=== PATIENT | female | born 1965 | race American Indian/Alaskan Native ===

== ENCOUNTER 2018-07-25 07:13 | Day surgery (SDC) | payer BC, OTHER ==
[2018-07-21 14:04] VITALS: BMI 47.0
[2018-07-25] MEDS ORDERED: Lidocaine/Epinephrine 1% 1:100000 10 ML IJ ONE (09:55)
[2018-07-25] MEDS ORDERED: EPINEPHrine 1:1000 Nasal Sol(30mL) ONE (09:55)
[2018-07-25] MEDS ORDERED: ceFAZolin 1 gm FROZEN Premix 0 GM/0 ML ML IVPB ONE (09:57)
[2018-07-25] MEDS ORDERED: ceFAZolin 1 gm in NS 2 GM/200 ML BAG IVPB ONE (09:58)
[2018-07-25] MEDS ORDERED: Propofol 10 mg/ml Inj (20 ML) ONE (12:43)
[2018-07-25] MEDS ORDERED: Rocuronium 10 mg/ml (10 ml) ONE ×2 (12:43→13:25)
[2018-07-25] MEDS ORDERED: Succinylcholine Chloride 20 mg/ml Syr (5 ml) IV ONE (12:43)
[2018-07-25] MEDS ORDERED: Midazolam 2 MG/2 ML VIAL ONE (12:44)
[2018-07-25] MEDS ORDERED: Labetalol 5mg/ml (4ml) ONE (14:19)
[2018-07-25] MEDS ORDERED: Neostigmine Methylsulfate 3mg/3ml Syringe IV ONE (14:38)
[2018-07-25] MEDS ORDERED: HYDROmorphone 0.5 mg/0.5 ml ISec ONE (14:54)
[2018-07-25] MEDS: HYDROmorphone 0.5 mg/0.5 ml ISec IVP PRN ×2 (15:06→15:14)
[2018-07-25] MEDS ORDERED: Bupivacaine 0.25% 20 ML INJ IJ ONE (15:48)
--- NOTE | 2018-07-25 16:14 | PCM.ANESB7 ---
Adductor Canal Block - Adductor Canal Block Date of Procedure: 07/25/18 Anesthiologist: Luke Christianson Pre-Procedure Diagnosis: acute postoperative pain Post-Procedure Diagnosis: acute postoperative pain Procedure Performed: Adductor Canal Block Right - Procedure Adductor Canal Block: The procedure was explained to the patient that it is for the post-operative pain management. Consent was obtained after a thorough discussion with the patient regarding the benefits and possible complications of local anesthetic adductor canal block of the femoral nerve. Standard monitors, as defined by the ASA, were applied to the patient. Time-out was held with the circulating nurse to confirm the appropriate block. After applying supplemental oxygen and administering IV Sedation as needed, the patient was placed in supine position with and the operative leg was flexed slightly at the knee and externally rotated as needed, and was kept anatomically stable. The mid-thigh of the RIGHT lower extremity was exposed. The ultrasound transducer was then applied transversely along the medial aspect, about midway down the thigh and the femoral artery and vein were identified in appropriate relation with the sartorius muscle. At this time, the femoral nerve was visualized lateral to the femoral artery within the canal. After thorough identification, this area area was prepped with Chloroprep solution three times and 1 % Lidocaine was injected subcutaneously for topical anesthesia. At this point, a #22 gauge Stimuplex 4-inch needle was inserted in-plane in a [id number] orientation, and advanced toward the femoral nerve. Advancement was performed carefully under direct ultrasound visualization. . After negative aspiration, _5_cc of __0.25% bupivicaine was injected and this was followed with 10_cc of 0.25% bupivicaine. Under ultrasound guidance the local anesthetics were observed spreading around the adductor nerve. The needle was removed intact and sterile dressing was applied. The patient had stable vital signs, was conscious and in no apparent distress. The patient tolerated the femoral nerve block well with stable vital signs and was prepared for subsequent surgery
[2018-07-25 17:06] VITALS: RESP 16; O2SAT 95
[2018-07-25 18:44] VITALS: BP 150/70; PULSE 71; TEMP 98
--- NOTE | 2018-09-01 08:07 | OP ---
PROCEDURE DATE: 07/25/2018 PREOPERATIVE DIAGNOSES: Right knee, 1. Medial meniscal tear. 2. Lateral meniscal tear. 3. Chondromalacia. 4. Synovitis. 5. Fat pad hypertrophy and inflammation. POSTOPERATIVE DIAGNOSES: Right knee, 1. Complex medial meniscal tear, not repairable. 2. Complex lateral meniscal tear, not repairable. 3. Chondromalacia, grade III throughout with grade IV at medial plateau and anteromedial aspect (measuring 6 mm x 10 mm). 4. Fat pad inflammation and hypertrophy causing anterior impingement. 5. Symptomatic medial and lateral plica bands. 6. Three compartment synovitis. 7. Inferior patellar osteophyte. PROCEDURES: Right knee arthroscopic, 1. Partial medial meniscectomy. 2. Partial lateral meniscectomy. 3. Chondroplasty of medial femoral condyle, lateral femoral condyle, patella. 4. Microfracture of medial tibial plateau. 5. Extensive synovectomy of all three compartments. 6. Resection and debridement of hypertrophic fat pad. 7. Resection and debridement of symptomatic plica bands. 8. Resection and removal of osteophyte at inferior patella. 9. Intra-articular platelet-rich plasma injection. SURGEON: Marva Mejia MD TELEVISION NEWS VIDEO EDITOR: Jocelyn Noyola PA-C JUSTIFICATION FOR TELEVISION NEWS VIDEO EDITOR: Jocelyn Noyola is a certified physician collections assistant whose skilled surgical assistance was an absolute necessity for successful completion of the procedure as he provided skilled surgical assistance with positioning of the patient, positioning of extremity, management of surgical field, retraction of neurovascular structures, facilitating and handling arthroscopic equipment, partial medial meniscectomy, partial lateral meniscectomy, chondroplasty, facilitating microfracture of medial tibial plateau, extensive debridement and synovectomy, PRP injection, wound closure, fitting and placement, and postoperative hinged knee brace. Jocelyn Noyola was present for the entire case and was an absolute necessity for successful completion of the procedure. ANESTHESIA: General endotracheal anesthesia with a postop regional nerve block placed by anesthesia staff in PACU. COMPLICATIONS: None. SPECIMENS: None. IMPLANTS: None. TOURNIQUET TIME: Zero minutes. DRAINS: None. DISPOSITION: The patient was extubated and transferred to the PACU in stable condition and tolerated the procedure well. INDICATIONS FOR SURGERY: The patient is a 53-year-old female with a past medical history significant for bronchial asthma/COPD who presents to the office for first care under my care at [facility] with a right knee pain on 05/27/2018. The patient stated that on 04/29/2018, she woke up with severe pain localized to the right knee and swelling. She had mechanical symptoms including multiple episodes of giving way and clicking and catching. Initial evaluation in the office with x-rays showed that weightbearing x-rays revealed that there were mild changes, but overall the medial and lateral joint lines were well maintained. She was referred for an MRI of the right knee, which was done at [facility] on 05/29/2018, read as: 1. Oblique tear of posterior horn of body medial meniscus. 2. Oblique tear of posterior horn of body lateral meniscus. 3. Great III sprain ACL and grade I sprain MCL. 4. [id number] tricompartmental articular chondrosis. 5. Moderate joint effusion and small Cesar's cyst. She underwent cortisone mixture injection in the office that provided her with near-complete resolution of pain, and she was started with conservative treatments including Neoprene hinged knee brace, anti-inflammatory medications in the form of Mobic, anti-inflammatory cream, home exercise program, and formal physical therapy regimen. On her followup visit to review the MRI and to see how she was progressing with physical therapy, she stated that the injection only lasted a week and the pain returned to baseline level of pain and that the physical therapy was making her pain worse. At that point in time after reviewing the MRI with her, we discussed possible surgical intervention, and she was indicated for surgery in the form of right knee arthroscopic partial medial meniscectomy and partial lateral meniscectomy versus meniscal repairs, chondroplasty versus microfracture, extensive synovectomy and all related indicated arthroscopic procedures. 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 After answering all of her questions, she stated that she understood the risks and wished to proceed with surgery. She watched surgical animation videos and diagnoses. The animation videos stated that she had a good understanding of the procedure to be done as well as her diagnoses. I reviewed at length with her the postop rehabilitation protocol and stated she had a good understanding of the need for compliance with the rehab protocol in order to maximize the chance of having successful outcome after surgery. She was referred to her primary care physician for preadmission testing and medical clearance, and the procedure was scheduled at [facility] on 07/25/2018. Physical exam throughout her office presentation was consistent with medial and lateral meniscal tear with positive medial and lateral Rosario examination and pain along the medial and lateral joint lines with no evidence of instability. PROCEDURE IN DETAIL: The patient was identified in the preoperative holding area and the right knee was marked for surgery. Once again as described above, the risks, benefits, and alternatives of the procedure were discussed at length with the patient, and informed consent was obtained. After a brief discussion with anesthesia staff, the patient was taken to the operating room and placed in a well-padded operating room table with all bony prominences, superficial and neurovascular structures well padded. Perioperative IV antibiotics were administered. An initial time-out was done. General anesthesia was administered without difficulty or complications. Examination under anesthesia was carried out. EXAMINATION UNDER ANESTHESIA: Right knee with full range of motion compared to contralateral knee, significant crepitance throughout range of motion especially at patellofemoral joint, symptomatic plica band identified on medial and lateral aspects of the inferior pole of the patella consistently engaging a 30-degrees flexion arc, no evidence of instability with negative Charles, negative anterior drawer, negative posterior drawer, negative reverse Charles, negative pivot shift, negative reverse pivot shift, negative posterolateral corner drawer, negative dial test, negative opening to mediolateral joint line 0 to 30 degrees varus and valgus stress, patella with normal tracking, no evidence of instability or J-sign. No swelling, no warmth, no erythema, skin intact. CONTINUATION OF PROCEDURE: The tourniquet was placed high on the left thigh, but never inflated. The right lower extremity was prepped and draped in a standard sterile fashion. Final time-out was done with the surgeon, anesthesia staff, and OR staff; all in agreement with the patient, procedure being done and the extremity to be operated on. Normal saline 50 mL was used to insufflate the knee joint. Anterolateral portal was created with stab incision through the skin and subcutaneous tissue down to the level of the capsule. Blunt arthroscopic trocar and cannula were inserted into the suprapatellar pouch, and the knee joints were insufflated with arthroscopic fluid. With the use of spinal needle localization, anteromedial portal location was selected and created with stab incision to the skin down to the subcutaneous tissue down to the level of capsule. With the use of arthroscopic probe, a diagnostic arthroscopy was then carried out. DIAGNOSTIC ARTHROSCOPY: Attention was first turned towards the suprapatellar pouch where there was no evidence of adhesions or loose bodies. Attention was then turned towards to the patellofemoral joint where immediately seen was grade III chondromalacia of the trochlea and the patella. Extending from the inferior medial and lateral aspects of the patella through the medial and lateral retinaculum were two very thick hypertropic symptomatic plica bands going medially and laterally through the medial and lateral retinaculum respectively. Attention was then turned towards the medial gutter where there was no evidence of loose bodies with the above-mentioned plica band seen. Attention was then turned towards the medial compartment where immediately seen was a global grade III chondromalacia and a complex degenerative medial meniscal tear that was not amenable to repair. Attention was then turned towards the lateral compartments where the same was seen in the lateral compartment as global grade II to III chondromalacia with a complex degenerative lateral meniscal tear. At the posteromedial aspect of the medial plateau, there was a small focal area of full-thickness cartilage loss measuring 6 mm in width x 10 mm in length just under the posterior horn of the medial meniscus as the only full-thickness joint cartilage loss seen throughout the whole knee. Extending from the inferior aspect of the patella was a large osteophyte that appeared to be symptomatic perhaps locking and causing pain with full extension. The infrapatellar fat pad was hypertropic and inflamed and impeding and impinging on the patellofemoral joint as well as extension of the knee joint. Throughout all three compartments, there was significant inflamed indurated synovitis that was hypertropic and appeared to be a significant pain generated for the patient as well. CONTINUATION OF THE PROCEDURE: ARTHROSCOPIC PARTIAL MEDIAL MENISCECTOMY: With the use of arthroscopic shaver and radiofrequency ablation as well as meniscal biters, a partial medial meniscectomy was carried out, removing the unstable meniscal fragments and complex tearing that was amenable to repair. Once a smooth contour was established, there appeared to be a significant deficit in medial meniscus. Approximately 50% of the medial meniscus had to be removed as it was involved in the tear. Arthroscopic lateral meniscal tear with the use of arthroscopic shaver, radiofrequency ablation and meniscal biters, a partial lateral meniscectomy was carried out to a lesser extent in the medial side. This was indeed complex degenerative tearing that was not amenable to repair. With the use of the instruments, we were able to establish a smooth contour, resecting approximately 20% of the lateral meniscus overall and stabilizing the tear. Attention was then turned to global treatment of the inflammation seen. ARTHROSCOPIC EXAM FOR SYNOVECTOMY AND DEBRIDEMENT: With the use of arthroscopic shaver and radiofrequency ablation, an extensive synovectomy was carried out in all three compartments that was beyond what was considered usual and customary for better visualization including resection and debridement of the hypertropic inflamed fat pad causing anterior impingement and patellofemoral impingement, resection of the symptomatic medial and lateral plica bands that were causing symptoms with the patella and the distal femur, three compartment synovectomy resection all the inflamed angry indurated red tissue that was seen. This was all down while maintaining good hemostasis, removing significant pain generators in the right knee for this patient. ARTHROSCOPIC CHONDROPLASTY AND MICROFRACTURE: With the use of arthroscopic shaver and radiofrequency ablation, a chondroplasty was carried out to the media femoral condyle, lateral femoral condyle, patella removing the grade III chondromalacia, unstable cartilage fragments and flaps establishing a smooth contour to the cartilage for all those articular surfaces. The lateral tibial plateau also underwent a chondroplasty. The medial tibial plateau also underwent chondroplasty, but as stated before at the posteromedial aspect of the tibial plateau, there was a small zone of full-thickness cartilage injury. With the use of microfracture, all this area underwent a microfracture hole placement with hopes generating some newer cartilages to support the meniscus deficiency in the medial compartment as well. The arthroscopic curette was used to establish a stable rim of good intact cartilage. The arthroscopic microfracture awls were then used to create bones through microfracture hole would get spacing and good bloody return. All in all, a successful microfracture of the medial tibial plateau was carried out. All arthroscopic fluid and debris were removed after final arthroscopic pictures were taken, and we were satisfied with all of our intra-articular work. ARTHROSCOPIC INTRA-ARTICULAR PRP INJECTION: With the help of anesthesia staff, a venous peripheral stick was carried out yielding venous blood. This was placed in the Arthrex Centrifuge and yielded 10 mL of PRP. The 10 mL of PRP was injected intra-articular under direct visualization in its completion. The arthroscopic portals were then reapproximated with a 2-0 Vicryl suture for deep tissue followed by 3-0 Monocryl suture for the skin. Sterile dressings were applied followed by a layer of sterile cast padding from the toes up to the superior thigh followed by a layer of compressive Bebeto wraps from the toes up to the superior thigh. A postop hinged knee brace provided by my office was then fitted in place on the patient to aid in ambulation after undergoing the femoral block for pain control as well as to help with range of motion and stability and safe ambulation after surgery. JUSTIFICATION AND RATIONALE FOR BILLING AND CODIN. Arthroscopic partial medial meniscectomy was carried out successfully as well as arthroscopic partial lateral meniscectomy was carried out successfully, and therefore we coded and billed together as medial and lateral partial meniscectomy as CPT code 06609. 2. An extensive synovectomy was carried out beyond what was considered usual and customary just for better visualization during arthroscopic surgery and a significant amount of surgical time was dedicated towards the resection and debridement of the hypertropic fat pad causing anterior impingement, resection and debridement of the symptomatic medial and lateral plica bands, a three compartment extensive synovectomy as well. Therefore, an extensive synovectomy was coded and billed as CPT 83417. 3. Chondroplasty and microfracture was carried out of the medial tibial plateau as an independent prior to the procedure. This was not inclusive to the partial medial and lateral meniscectomy codes, and therefore it was coded and billed as the microfracture portion of the case as CPT 91671. 4. Intra-articular PRP injection was carried out successfully, CPT code 0232T. 5. 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 The postoperative hinged knee brace was provided by my office, and therefore it was coded and billed as DME code [id number]. DISPOSITION: The patient was extubated in satisfactory and stable condition and tolerating the procedure well. She will follow up in my office at [facility] in one week and already has a postoperative appointment setup. She will be discharged home once she has recovered from anesthesia. She has been given prescriptions for Percocet for pain control. She has been given the prescription for Lovenox for DVT prophylaxis. She will start postoperative day #1 once daily injections for two weeks. She will contact me directly with any questions or concerns. Marva Mejia MD
== END 2018-07-25 18:20 | disposition home or self-care (01) ==
LOC: C.SDS 07:13
PROVIDERS: ATTEND Student in an Organized Health Care Education/Training Program
DX: S83.231D Complex tear of medial meniscus, current injury, right knee, subsequent encounter (principal); S83.271D Complex tear of lateral meniscus, current injury, right knee, subsequent encounter; M67.861 Other specified disorders of synovium, right knee; M94.261 Chondromalacia, right knee
CPT/HCPCS: 29876; 29880; 29999; 97116; 97161; C1751; G8978; G8979; G8980; J0690; J1170; J2001; J2250; J2405; J2704; J2710; J3010; J7120